=== PATIENT | female | born 1945 | race Hispanic/Latino ===

== ENCOUNTER → 2019-08-05 | Day surgery (SDC) | payer MEDICARE ==
[2019-08-03 16:01] LABS: BASOPHILS # (AUTO) 0.1 (0.0-0.1); BASOPHILS % 0.7 % (0.0-1.0); EOSINOPHILS # (AUTO) 0.3 (0.0-0.4); HEMATOCRIT 37.4 % (34.2-44.1); HEMOGLOBIN 12.3 g/dL (12.0-16.0); LYMPHOCYTES # (AUTO) 2.4 (1.0-3.2); LYMPHOCYTES % 35.2 % (18.0-39.1); MEAN CORPUSCULAR HEMOGLOBIN 30.9 pg (28-32); MEAN CORPUSCULAR HGB CONC 32.9 g/dL (31-35); MONOCYTES # (AUTO) 0.5 (0.2-0.8); MONOCYTES % 7.5 % (4.4-11.3); NEUTROPHILS # (AUTO) 3.5 (2.1-6.9); NEUTROPHILS % 52.3 % (38.7-80.0); PLATELET COUNT 290 x10e3/uL (140-360); RED BLOOD COUNT 3.98 x10e6/uL (3.6-5.1); RED CELL DISTRIBUTION WIDTH 12.8 % (11.7-14.4)
[~2019-08-05] MED LIST: BUPROPION HCL100 MG PO; FENOFIBRATE145 MG PO; FENTANYL CITRATE/PF 100MCG/2 ML INJ ONE; HYOSCYAMINE 0.125 MG TAB ONE; LATANOPROST2.5 ML OU; METFORMIN HCL500 MG PO; METOPROLOL SUCC25 MG PO; MIDAZOLAM HCL 2 MG/2 ML VIAL ONE; PAROXETINE HCL40 MG PO; PROPOFOL IV EMULSION 10 MG/ML 50 ML VIAL ONE; RAMIPRIL5 MG PO; SIMVASTATIN20 MG PO
--- OUTSIDE RECORDS SUMMARY | 2019-08-05 07:19 | XMS REPORT ---
[facility] Address Unknown Phone Unavailable Care Team Providers Care Engine Repairer Service Name Role Phone Unavailable Unavailable Payers Payer Name Policy Type Policy Number Effective Date Expiration Date Problems This patient has no known problems. Allergies, Adverse Reactions, Alerts Allergy Name Allergy Type Status Severity Reaction(s) Onset Date Inactive Date Treating Clinician Comments latex DA Active U 2015-07-28 00:00:00 Medications This patient has no known medications. Results Test Description Test Time Test Comments Text Results Atomic Results Result Comments - NM MYOCRD SPECT R/S MULT 2018-12-29 16:16:00 FAX: Rylee Smith [phone] Camps: PM St: REG FAX: Yonis Pulido [phone] Name: CLINT TORRES [facility] : 1945 Age/S: 73/F [address] Unit #: [id number] Loc: [place] [address] Phys: Yonis Raphael MD Acct: [id number] Dis Date: Status: REG CLI PHONE #: [phone] Exam Date: 12/29/2018 1443 FAX #: Reason: NM EXAMS: CPT: [id number] NM MYOCRD SPECT R/S MULT [id number] SPECT myocardial perfusion study with gated wall motion and ejection fraction INDICATION: Preop, diabetes, hypertension LOCATION: T18 Resting images were obtained after administration of 10 mCi Tc-99m sestamibi and stress images were obtained after administ ration of 30 mCi Tc-99m sestamibi, and 0.4mg Lexiscan. PERFUSION STUDY Normal distribution of radionuclide throughout the left ventricular wall. No evidence of ischemia, scar or infarct. GATED STUDY Normal wall motion , with a left ventricular ejection fraction of 79%. IMPRESSION: Normal study. Ejection fraction 79%. at 1616 Reported and signed by: Yonis Henry M.D. CC: Rylee Quintero MD; Yonis Raphael MD Technologist: JEAN Banks Transcribed Date/Time/By: 12/29/2018 (8504) :Madalyn Orig Print D/T: S: 12/29/2018 (2251) PAGE 1 Signed Report
[2019-08-05 12:07] VITALS: BP 124/62
--- NOTE | 2019-08-05 13:07 | Operative Report ---
DATE OF PROCEDURE: 08/05/2019 SURGEON: Puma Barragan MD PROCEDURES: EGD with biopsies and colonoscopy with polypectomy. INDICATION FOR EGD: History of melena. INDICATIONS FOR COLONOSCOPY: Lower abdominal pain, constipation. MEDICATIONS: The patient was done under MAC, please see anesthesiologist's note. PROCEDURE IN DETAIL: With the patient in left lateral decubitus position, the flexible fiberoptic Olympus gastroscope was introduced into the esophagus under direct visualization without any difficulty. There was some patchy erythema noted in the distal esophagus. The scope was then advanced with ease into the stomach. Mucosa overlying the antrum and the body revealed some patchy erythema and moderate edema, and biopsies were obtained and sent to stain for H. pylori. There were some patchy areas in the body appears somewhat atrophic and biopsies were obtained to rule out atrophic gastritis. The pylorus was intubated with ease and the scope was advanced all the way to the second portion of the duodenum. Biopsies were obtained from the proximal second portion and duodenal bulb to rule out sprue. The scope was then withdrawn back into the stomach and retroflexed, and mucosa overlying the fundus and the cardia appeared to be within normal limits. The scope was then straightened out, it was subsequently withdrawn, and the patient tolerated the procedure well. IMPRESSION: 1. Mild distal esophagitis. 2. Gastritis, biopsied, biopsies sent to stain for Helicobacter pylori. 3. Rule out sprue. PLAN: Follow up histology. Initiate Protonix 40 mg one 1 p.o. q.a.m. before meals. The patient was then turned around and after adequate lubrication of the anal canal, a flexible fiberoptic Olympus colonoscope was inserted into the rectum with ease and advanced all the way to the cecum. One polyp was removed per cold biopsy forceps from the cecum. Diverticular disease was noted to be scattered pretty much throughout, but it was more prominent in the left colon. One polyp was snared and one polyp was removed per hot biopsy forceps from the ascending colon. The transverse appeared to be within normal limits. One polyp was snared and two polyps were hot biopsied from the descending colon. One polyp was snared from the sigmoid. The rectum appeared to be within normal limits. The scope was then retroflexed into the distal rectum and small internal hemorrhoids were noted, none of which was actively bleeding. The scope was then straightened out, it was subsequently withdrawn, and the patient tolerated the procedure well. IMPRESSION: 1. Cecal polyp removed per cold biopsy forceps. 2. Diverticulosis. 3. Ascending colon polyps x2, one hot snared and one hot biopsied. 4. Descending colon polyps x3, one hot snared and two hot biopsied. 5. Sigmoid colon polyp, snared. 6. Internal hemorrhoids, none actively bleeding. PLAN: Follow up histology. Initiate high-fiber, low-fat diet. Initiate high-fiber supplement. The patient might benefit from a followup colonoscopy in 3 years. Puma Barragan MD [facility] /[id number] cc: Rylee Quintero MD
== END | disposition home or self-care (01) ==
LOC: OR 07:17
PROVIDERS: ATTEND Internal Medicine Gastroenterology
DX: K92.1 Melena (principal); K59.00 Constipation, unspecified; R19.7 Diarrhea, unspecified; R63.4 Abnormal weight loss; R10.32 Left lower quadrant pain; R10.31 Right lower quadrant pain; E11.9 Type 2 diabetes mellitus without complications; H40.9 Unspecified glaucoma; F41.9 Anxiety disorder, unspecified; E78.5 Hyperlipidemia, unspecified; I10 Essential (primary) hypertension; K29.50 Unspecified chronic gastritis without bleeding; K20.9 Esophagitis, unspecified; K63.5 Polyp of colon; K57.30 Diverticulosis of large intestine without perforation or abscess without bleeding; K64.8 Other hemorrhoids; Z96.653 Presence of artificial knee joint, bilateral; Z91.040 Latex allergy status; Z01.810 Encounter for preprocedural cardiovascular examination; Z01.812 Encounter for preprocedural laboratory examination; B96.81 Helicobacter pylori [H. pylori] as the cause of diseases classified elsewhere; D12.2 Benign neoplasm of ascending colon; D12.0 Benign neoplasm of cecum; D12.4 Benign neoplasm of descending colon; D12.5 Benign neoplasm of sigmoid colon; Z79.84 Long term (current) use of oral hypoglycemic drugs
CPT/HCPCS: 36415 ×2; 43239; 45380; 45384; 45385; 82948; 85025; 88305; 88312; 93005; J2250; J2704; J3010; 45378

== ENCOUNTER → 2019-09-07 | Outpatient (CLI) | payer MEDICARE ==
[~2019-09-07] MED LIST changes: -FENTANYL CITRATE/PF 100MCG/2 ML INJ ONE; -HYOSCYAMINE 0.125 MG TAB ONE; -MIDAZOLAM HCL 2 MG/2 ML VIAL ONE; -PROPOFOL IV EMULSION 10 MG/ML 50 ML VIAL ONE
--- NOTE | 2019-09-07 15:04 | Diagnostic Imaging Report ---
FLUOROSCOPIC SMALL BOWEL SERIES UPSCALE SECURITY OFFICER(S): Pop Cruz MD Indication: Melena Comparison: None. Radiation Dose: Total dose: 16 mGy Total fluoroscopy time: 0.4 minutes Procedure: Small bowel follow through exam was performed using oral barium. Preliminary image was obtained before administration of contrast and serial overhead images were obtained after administration of oral barium. Fluoroscopy was performed and spot images were obtained. DISCUSSION: FIELD CONTRACTOR: The bowel gas pattern is non-obstructive. No acute bony abnormality. STOMACH: Unremarkable mucosal pattern. SMALL BOWEL: Bulb and sweep are normal. Duodenal-jejunal junction is in the normal expected position. Small bowel loops are normal in caliber and distribution. There is no evidence of fistula, mucosal changes, stricture or dilation. The transit time was within normal limits. COLON: Partially visualized proximal colon is unremarkable. IMPRESSION: Unremarkable fluoroscopic small bowel series. Signed by: Pop Cruz MD on 09/07/2019 3:01 PM
== END ==
LOC: DX 10:01
PROVIDERS: ATTEND Internal Medicine Gastroenterology
DX: K92.1 Melena (principal)
CPT/HCPCS: 74250

== ENCOUNTER → 2021-02-14 | Outpatient (CLI) | payer MEDICARE, OTHER ==
[~2021-02-14] MED LIST changes: +DIATRIZOATE MEGL/DIATRIZOA SOD 30 ML BTL PO ONE; +IOPAMIDOL 370 MG/ML 200 ML INFUS..BTL INJ ONE; +SODIUM CHLORIDE 0.9% 50ML 50 ML ONE
[2021-02-14 14:28] LABS: CREATININE, SERUM 0.97 mg/dL (0.57-1.11)
== END ==
LOC: CT 13:34
PROVIDERS: ATTEND Internal Medicine Gastroenterology
DX: K59.00 Constipation, unspecified (principal); R10.30 Lower abdominal pain, unspecified; R14.0 Abdominal distension (gaseous); R12 Heartburn
CPT/HCPCS: 36415; 74177; 82565; 84520; Q9967

== ENCOUNTER → 2022-05-22 | Outpatient (CLI) | payer MEDICARE, OTHER ==
[~2022-05-22] MED LIST changes: -DIATRIZOATE MEGL/DIATRIZOA SOD 30 ML BTL PO ONE; -IOPAMIDOL 370 MG/ML 200 ML INFUS..BTL INJ ONE; -SODIUM CHLORIDE 0.9% 50ML 50 ML ONE
== END ==
LOC: US 09:20
PROVIDERS: ATTEND Specialist
DX: R10.2 Pelvic and perineal pain (principal)
CPT/HCPCS: 76857